=== PATIENT | male | born 2000 | race Caucasian/White ===

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

== ENCOUNTER 2018-08-23 11:49 | Emergency (ER) | payer MEDICAID ==
[2018-08-23] MEDS ORDERED: CEFTRIAXONE INJ 250 MG VIAL IM ONE (12:37)
[2018-08-23] MEDS ORDERED: DOXYCYCLINE HYCLATE 100 MG TABLET PO ONE (12:37)
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
[2018-08-23 12:59] VITALS: BP 109/46
== END 2018-08-23 13:01 | disposition home or self-care (01) ==
LOC: ER 11:49
DX: N48.21 Abscess of corpus cavernosum and penis (principal); R59.0 Localized enlarged lymph nodes; F31.9 Bipolar disorder, unspecified; F17.210 Nicotine dependence, cigarettes, uncomplicated
CPT/HCPCS: 99282; 96372; J3490; J0696

== ENCOUNTER 2018-09-09 09:50 | Emergency (ER) | payer MEDICAID ==
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
--- NOTE | 2018-09-09 11:24 | RADIOLOGY REPORT (SQ) ---
EXAM DESCRIPTION: KNEE LEFT 4 VIEW COMPLETED DATE/TIME: 09/09/2018 10:51 am REASON FOR STUDY: left patella pain s/p injury COMPARISON: None. NUMBER OF VIEWS: Four views. TECHNIQUE: AP, lateral, and both oblique radiographic images acquired of the left knee. LIMITATIONS: None. FINDINGS: MINERALIZATION: Normal. BONES: No acute fracture or dislocation. No worrisome bone lesions. JOINT: No effusion. SOFT TISSUES: No soft tissue swelling. No radio-opaque foreign body. OTHER: No other significant finding. IMPRESSION: NEGATIVE STUDY OF THE LEFT KNEE. NO RADIOGRAPHIC EVIDENCE OF ACUTE INJURY. TECHNICAL DOCUMENTATION: JOB ID: [id number] [employer]- All Rights Reserved Reading location - IP/workstation name: [email or web address]
[2018-09-09 11:51] VITALS: BP 116/63
== END 2018-09-09 11:50 | disposition home or self-care (01) ==
LOC: ER 09:50
DX: M25.562 Pain in left knee (principal); W20.8XXA Other cause of strike by thrown, projected or falling object, initial encounter; F17.200 Nicotine dependence, unspecified, uncomplicated
CPT/HCPCS: 99283

== ENCOUNTER 2018-11-03 09:14 | Emergency (ER) | payer MEDICAID ==
[2018-11-03 09:27] VITALS: BP 135/60
--- NOTE | 2018-11-03 09:44 | ER Document Report ---
HPI - HPI Patient complains to provider of: Left foot numbness Time Seen by Provider: 11/03/18 09:27 Onset: Yesterday Onset/Duration: Persistent Quality of pain: No pain Pain Level: 0 Context: Patient presents complaining of numbness to the dorsal aspect of the left foot in the anterior aspect of his left tapia. Patient denies any trauma or injury. 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 Associated Symptoms: Other - Numbness to the dorsal aspect of left foot and left tapia Exacerbated by: Denies Relieved by: Denies Similar symptoms previously: No Recently seen / treated by doctor: No - ROS ROS below otherwise negative: Yes Systems Reviewed and Negative: Yes All other systems reviewed and negative - CONSTITUTIONAL Constitutional: DENIES: Fever, Chills - NEURO Neurology: DENIES: Weakness - MUSCULOSKELETAL Musculoskeletal: DENIES: Extremity pain, Swelling - DERM Skin Color: Normal Skin Problems: None Past Medical History - General Information source: Patient - Social History Smoking Status: Current Every Day Smoker Smoking Education Provided: Yes Frequency of alcohol use: None Drug Abuse: None 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 IN LAST 30 DAYS: No - HEENT HEENT: Atraumatic, Normocephalic - NECK Neck: Normal Inspection - RESPIRATORY Respiratory: Breath Sounds Normal, No Respiratory Distress - CARDIOVASCULAR Cardiovascular: Regular Rate, Regular Rhythm Pulses: Normal: Dorsalis pedis Notes: Normal capillary refill to left lower extremity - BACK Back: Normal Inspection Notes: No spinal midline tenderness step-off or deformity, no saddle anesthesia - MUSCULOSKELETAL/EXTREMETIES Musculoskeletal/Extremeties: MAEW, FROM, Non-Tender, No Edema Notes: Normal skin color and temperature to the left lower extremity. No edema. Decreased light sensation to touch to anterior aspect of left leg and dorsal aspect of left foot in a superficial peroneal nerve distribution pattern. No foot drop - NEURO Level of Consciousness: Awake, Alert, Appropriate Motor/Sensory: No Motor Deficit - DERM Integumentary: Warm, Dry Course - Re-evaluation Re-evalutation: 11/03/18 Patient presents with symptoms worrisome for superficial peroneal nerve compression syndrome likely attributed to his frequent squatting underneath a trailer while at work for the past 2 days. Patient with good pulses and no evidence of vascular compromise at this time. No foot drop noted. Normal strength and muscle tone to bilateral lower extremities. Good return precautions given. - Vital Signs Vital signs: Temp Pulse Resp BP Pulse Ox 98.1 F 61 18 135/60 H 98 11/03/18 09:24 11/03/18 09:24 11/03/18 09:24 11/03/18 09:24 11/03/18 09:24 Discharge - Discharge Clinical Impression: Nerve compression Condition: Stable Disposition: HOME, SELF-CARE Additional Instructions: Return immediately for any new or worsening symptoms Followup with your primary care provider, call tomorrow to make a followup appointment Be sure to change position frequently whenever you are at work and avoid tight fitting or ill fitting shoes to avoid compression on the nerves of the foot. Return immediately if you have any weakness in the foot, new or worsening symptoms Forms: Smoking Cessation Education, Return to Work Referrals: [facility] [Provider Group] - Follow up as needed
== END 2018-11-03 09:56 | disposition home or self-care (01) ==
LOC: ER 09:14
DX: G58.9 Mononeuropathy, unspecified (principal); R20.0 Anesthesia of skin; F17.200 Nicotine dependence, unspecified, uncomplicated
CPT/HCPCS: 99283

== ENCOUNTER 2019-03-13 21:29 | Emergency (ER) | payer MEDICAID ==
[2019-03-13 22:17] VITALS: BP 115/51
--- NOTE | 2019-03-14 01:30 | RADIOLOGY REPORT (SQ) ---
EXAM DESCRIPTION: XR FOREARM 2 VIEWS COMPLETED DATE/TME: 03/14/2019 00:19 CLINICAL HISTORY: 18 years, Male, injury COMPARISON: None. NUMBER OF VIEWS: 2 TECHNIQUE: 2 view right forearm LIMITATIONS: None. FINDINGS: Negative for fracture or dislocation. Soft tissues are unremarkable IMPRESSION: Negative exam copyright 2011 [employer]- All Rights Reserved
--- NOTE | 2019-03-14 01:31 | RADIOLOGY REPORT (SQ) ---
EXAM DESCRIPTION: XR HUMERUS COMPLETED DATE/TME: 03/14/2019 00:18 CLINICAL HISTORY: 18 years, Male, injury COMPARISON: None. NUMBER OF VIEWS: 2 TECHNIQUE: 2 view right humerus LIMITATIONS: None. FINDINGS: Negative for fracture or dislocation. Soft tissues are unremarkable IMPRESSION: Negative exam copyright 2011 [facility] [employer] [employer]- All Rights Reserved
--- NOTE | 2019-03-14 02:13 | ER Document Report ---
ED General - General Chief Complaint: Arm Injury Stated Complaint: LEFT ARM INJURY Time Seen by Provider: 03/14/19 00:18 Primary Care Provider: SANCHO KAUR FNP-C [Primary Care Provider] - Follow up as needed Mode of Arrival: Ambulatory Information source: Parent TRAVEL OUTSIDE OF THE [place] IN LAST 30 DAYS: No - HPI Patient complains to provider of: Right arm injury Onset: This afternoon Onset/Duration: Sudden Quality of pain: Sharp Severity: Severe Pain Level: 5 Associated symptoms: None Exacerbated by: Denies Similar symptoms previously: No Recently seen / treated by doctor: No Notes: Patient is a 18-year-old a chief complaint of right upper arm pain. Reports he was playing football and fell and injured his right upper extremity. States pain goes from his shoulder to his hands. - Related Data Allergies/Adverse Reactions: Milk Containing Products Adverse Reaction (Verified 11/03/18 09:16) Past Medical History - General Information source: Patient - Social History Smoking Status: Current Every Day Smoker Frequency of alcohol use: None Drug Abuse: Marijuana Family History: Reviewed & Not Pertinent Patient has suicidal ideation: No Patient has homicidal ideation: No Renal/ Medical History: Denies: Hx Peritoneal Dialysis Psychiatric Medical History: Reports: Hx Attention Deficit Hyperactivity Disorder, Hx Bipolar Disorder Past Surgical History: Reports: Hx Nose Surgery - Immunizations Hx Diphtheria, Pertussis, Tetanus Vaccination: Yes Review of Systems - Review of Systems Notes: Constitutional: No fevers. No chills. EENT: No eye redness. No eye pain. No ear pain. No sore throat. Cardiovascular: No chest pain. No palpitations. Respiratory: No cough. No shortness of breath. No respiratory distress. Gastrointestinal: No abdominal pain. No nausea, vomiting, or diarrhea. Genitourinary: Atraumatic. No lesions. No pain. No discharge. Musculoskeletal: Atraumatic. No swelling. No deformities. Positive for right upper extremity pain Skin: No rash or lesions. Lymphatic: No swollen lymph nodes. Neurologic: No headache. No syncope. Psychiatric: No suicidal or homicidal ideation. Physical Exam - Vital signs Vitals: Temp Pulse Resp BP Pulse Ox 97.6 F 87 18 115/51 L 98 03/13/19 22:15 03/13/19 22:15 03/13/19 22:15 03/13/19 22:15 03/13/19 22:15 - Notes Notes: General: Well-developed, well-nourished. In no acute distress. Non-toxic appearing. Cardiac: Well-perfused. Regular rate and rhythm. No murmurs, rubs, or gallops. Pulmonary: No respiratory distress. No cyanosis. Bilateral lung fiels are clear to auscultation. Abdominal: Non-distended. Non-rigid. Bowels sounds are present in all four quadrants. No guarding or rebound. HEENT: Head is atraumatic. Conjunctivae not reddened. No tearing. PERRL. EOMI. Orbits atraumatic. No periorbital swelling or erythema. Oropharynx is without erythema, swelling, or exudates. Neck: Supple. No adenopathy. No meningismus. Dermatologic: Warm with good turgor. No rash. Atraumatic. Chest: Atraumatic. No chest wall tenderness to palpation. Musculoskeletal: Moves all extremities well. No range of motion deficits. no muscular or joint tenderness. No paraspinal muscle tenderness. no midline spinal tenderness or step-off. The right upper extremity is atraumatic in appearance. There is no focal tenderness. There is no swelling or erythema or heat. Full range of motion at all the joints. Neurovascularly intact Genitourinary: Examination deferred Neurologic: No gross neurologic deficits. Psychiatric: Normal mood. Course - Re-evaluation Re-evalutation: 03/14/19 02:12 X-rays are negative. Sling offered for comfort. Patient declined. He is fast asleep and sleeping directly on the arm and is not having any difficulty moving around. - Vital Signs Vital signs: Temp Pulse Resp BP Pulse Ox 97.6 F 87 18 115/51 L 98 03/13/19 22:15 03/13/19 22:15 03/13/19 22:15 03/13/19 22:15 03/13/19 22:15 - Diagnostic Test Radiology reviewed: Reports reviewed - X-rays of the humerus and forearm are reviewed. Negative per radiology Discharge - Discharge Clinical Impression: Arm injury Qualifiers: Encounter type: initial encounter Laterality: right Qualified Code(s): S49.91XA - Unspecified injury of right shoulder and upper arm, initial encounter Condition: Good Disposition: HOME, SELF-CARE Instructions: Muscle Strain ([facility]) Additional Instructions: Tylenol or Motrin for pain. Follow-up with the [facility] if your symptoms persist Referrals: SANCHO KAUR FNP-C [Primary Care Provider] - Follow up as needed [facility] [Provider Group] - Follow up as needed
== END 2019-03-14 02:35 | disposition home or self-care (01) ==
LOC: ER 21:29
DX: S49.91XA Unspecified injury of right shoulder and upper arm, initial encounter (principal); M79.601 Pain in right arm; M25.511 Pain in right shoulder; M79.641 Pain in right hand; W18.30XA Fall on same level, unspecified, initial encounter; Y93.61 Activity, american tackle football; F17.200 Nicotine dependence, unspecified, uncomplicated
CPT/HCPCS: 99283

== ENCOUNTER 2019-05-16 19:09 | Emergency (ER) | payer MEDICAID ==
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
[2019-05-16 21:47] VITALS: BP 123/86
== END 2019-05-16 21:47 | disposition home or self-care (01) ==
LOC: ER 19:09
DX: S09.90XA Unspecified injury of head, initial encounter (principal); S80.212A Abrasion, left knee, initial encounter; S80.211A Abrasion, right knee, initial encounter; Y04.2XXA Assault by strike against or bumped into by another person, initial encounter; F17.200 Nicotine dependence, unspecified, uncomplicated
CPT/HCPCS: 70450; 70486; 72125; 99284

== ENCOUNTER 2019-05-18 17:37 | Emergency (ER) | payer MEDICAID ==
[2019-05-18] MEDS ORDERED: HYDROCODONE/ACETAMINOPHEN 5-325 MG TABLET PO ONE (19:17)
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
[2019-05-18 19:51] VITALS: BP 120/51
== END 2019-05-18 19:53 | disposition home or self-care (01) ==
LOC: ER 17:37
DX: S00.12XA Contusion of left eyelid and periocular area, initial encounter (principal); S80.212A Abrasion, left knee, initial encounter; S80.211A Abrasion, right knee, initial encounter; R68.84 Jaw pain; R51 Headache; Y04.0XXA Assault by unarmed brawl or fight, initial encounter; F12.10 Cannabis abuse, uncomplicated
CPT/HCPCS: 99284

== ENCOUNTER 2019-10-19 16:31 | Emergency (ER) | payer MEDICAID ==
[2019-10-19 16:58] VITALS: BP 117/69
--- NOTE | 2019-10-19 17:17 | ER Document Report ---
HPI - HPI Time Seen by Provider: 10/19/19 17:08 Pain Level: 0 Notes: Patient is a 19-year-old male who presents complaining of small red bump that is a little painful to the proximal shaft of his penis. Patient states that he does shave in this area. He has had this before and needed to put antibiotic ointment cream on it. He has never had any other STD that he is aware. He is able to eat and drink without difficulty. He is urinating normally and having normal bowel movements. No testicular pain or obvious bulging anywhere. He has not noticed any purulent discharge. Denies any headache, fever, neck pain, URI, sore throat, chest pain, palpitations, syncope, cough, shortness of breath, wheeze, dyspnea, abdominal pain, nausea/vomiting/diarrhea, urinary retention, dysuria, hematuria. - ROS Systems Reviewed and Negative: Yes All other systems reviewed and negative Past Medical History - Social History Smoking Status: Current Every Day Smoker Family History: Reviewed & Not Pertinent Patient has suicidal ideation: No Patient has homicidal ideation: No Renal/ Medical History: Denies: Hx Peritoneal Dialysis Psychiatric Medical History: Reports: Hx Attention Deficit Hyperactivity Disorder, Hx Bipolar Disorder Past Surgical History: Reports: Hx Nose Surgery - Immunizations Hx Diphtheria, Pertussis, Tetanus Vaccination: Yes Vertical Provider Document - CONSTITUTIONAL Agree With Documented VS: Yes Notes: PHYSICAL EXAMINATION: GENERAL: Well-appearing, well-nourished and in no acute distress. LUNGS: Breath sounds clear to auscultation bilaterally and equal. No wheezes rales or rhonchi. HEART: Regular rate and rhythm without murmurs, rubs, gallops. ABDOMEN: Soft, nontender, nondistended abdomen. No guarding, no rebound. Normal bowel sounds present. No CVA tenderness bilaterally. : No urethral discharge. No testicular tenderness. No obvious hernia or lymphadenopathy. Nontender palpation of the testicles. There is a mild erythema and swelling at the site of hair follicle approximately 0.5 cm that has tenderness associated and mild induration without any fluctuance. There is no ulceration or fasciculations. Musculoskeletal: FROM to passive/active. Strength 5+/5. Extremities: No cyanosis, clubbing, or edema b/l. Peripheral pulses 2+. Capillary refill less than 3 seconds. NEUROLOGICAL: Normal speech, normal gait. PSYCH: Normal mood, normal affect. SKIN: See above - INFECTION CONTROL TRAVEL OUTSIDE OF THE [place] IN LAST 30 DAYS: No Course - Re-evaluation Re-evalutation: 10/19/19 17:17 Patient is an afebrile, well-hydrated, 19-year-old male who presents with a mild cellulitis to the base of his penis most likely secondary to him shaving in that area of an infected hair follicle. There is no obvious fluctuance warranting incision and drainage at this time. Vitals are acceptable without significant tachycardia, tachypnea, or hypoxia. PE is otherwise unremarkable. Patient is nontoxic-appearing and is tolerating p.o. without difficulty. Low suspicion for any necrotizing fasciitis, SJS, SSS, drug reaction, sepsis, meningitis, syphilis, Lyme disease, [place] spotted fever, or other systemic emergent condition at this time. Patient aware that condition can change from initial presentation and he needs to monitor symptoms closely and seek medical attention with any acute changes. Rx for keflex/bactrim. Recheck with your PCM in 2 to 3 days. Consider consult with dermatology. Return to the ED with any other worsening/concerning symptoms as reviewed. Patient is in agreement. - Vital Signs Vital signs: Temp Pulse Resp BP Pulse Ox 97.9 F 55 L 12 117/69 100 10/19/19 16:57 10/19/19 16:57 10/19/19 16:57 10/19/19 16:57 10/19/19 16:57 Discharge - Discharge Clinical Impression: Cellulitis Qualifiers: Site of cellulitis: other site Qualified Code(s): L03.818 - Cellulitis of other sites Condition: Stable Disposition: HOME, SELF-CARE Additional Instructions: Keep the skin clean Wash with soap and water Tylenol/ibuprofen if needed Avoid shaving for 2 weeks Triple antibiotic ointment daily Take medication as directed Monitor for any worsening symptoms Recheck with your PCM in 2-3 days Consider consult with Dermatology for ongoing/worsening symptoms Return to the ED with any worsening symptoms and/or development of fever, headache, chest pain, palpitations, syncope, shortness of breath, trouble breathing, abdominal pain, n/v/d, abscess, purulent discharge, red streaks, worsening swelling, or other worsening symptoms that are concerning to you. Prescriptions: Sulfamethoxazole/Trimethoprim [Bactrim Ds Tablet] 1 each PO BID #20 tablet Cephalexin Monohydrate [Keflex 500 mg Capsule] 500 mg PO TID #30 capsule Forms: Smoking Cessation Education Referrals: NEISHA JONES DO [ACTIVE STAFF] - Follow up as needed
== END 2019-10-19 17:27 | disposition home or self-care (01) ==
LOC: ER 16:31
DX: N48.22 Cellulitis of corpus cavernosum and penis (principal); F17.200 Nicotine dependence, unspecified, uncomplicated
CPT/HCPCS: 99283

== ENCOUNTER 2019-11-25 15:35 | Emergency (ER) | payer MEDICAID ==
[2019-11-25] MEDS ORDERED: ONDANSETRON 4 MG TAB.RAPDIS PO ONE (16:24)
[2019-11-25] MEDS ORDERED: NORMAL SALINE 1000 ML 1,000 ML IV PRN (16:24)
--- NOTE | 2019-11-25 16:26 | ER Document Report ---
ED Medical Screen (RME) - General Chief Complaint: Nausea/Vomiting/Diarrhea Stated Complaint: NAUSEA,VOMITING,DIARRHEA Time Seen by Provider: 11/25/19 16:22 TRAVEL OUTSIDE OF THE [place] IN LAST 30 DAYS: No - HPI Notes: 11/25/19 16:25 Patient is a 19-year-old male no significant past medical history presents complaint nausea, vomiting, diarrhea, body aches, nasal congestion/discharge, occasional cough over the past 4 days. Patient states that he has not been able to keep any fluids down. I have treated and performed a rapid initial assessment of this patient. A comprehensive ED assessment and evaluation of the patient, analysis of test results and completion of medical decision making process will be conducted by additional ED providers. PHYSICAL EXAMINATION: GENERAL: Well-appearing, well-nourished and in no acute distress. A&Ox4. Answers questions appropriately. Abdomen: No focal tenderness noted. Abdomen is soft. Limited exam otherwise in triage. Lungs: CTAB - Related Data Allergies/Adverse Reactions: Milk Containing Products Adverse Reaction (Verified 05/18/19 17:39) Past Medical History Renal/ Medical History: Denies: Hx Peritoneal Dialysis Psychiatric Medical History: Reports: Hx Attention Deficit Hyperactivity Disorder, Hx Bipolar Disorder Past Surgical History: Reports: Hx Nose Surgery - Immunizations Hx Diphtheria, Pertussis, Tetanus Vaccination: Yes Physical Exam - Vital signs Vitals: Temp Pulse Resp BP Pulse Ox 98.5 F 89 15 161/72 H 100 11/25/19 15:55 11/25/19 15:55 11/25/19 15:55 11/25/19 15:55 11/25/19 15:55 Course - Vital Signs Vital signs: Temp Pulse Resp BP Pulse Ox 98.5 F 89 15 161/72 H 100 11/25/19 15:55 11/25/19 15:55 11/25/19 15:55 11/25/19 15:55 11/25/19 15:55
[2019-11-25 17:30] LABS: ABSOLUTE LYMPHOCYTES (AUTO) 1.7 10^3/uL (0.5-4.7); ABSOLUTE MONOCYTES (AUTO) 0.7 10^3/uL (0.1-1.4); ABSOLUTE NEUT (AUTO) 4.2 10^3/uL (1.7-8.2); BASOPHILS % (AUTO) 0.5 % (0-2); EOSINOPHILS % (AUTO) 0.3 % (0-6); HEMATOCRIT 44.3 % (37.9-51.0); HEMOGLOBIN 15.4 g/dL (13.5-17.0); LYMPHOCYTES % (AUTO) 25.9 % (13-45); MEAN CORPUSCULAR HEMOGLOBIN 30.3 pg (27.0-33.4); MEAN CORPUSCULAR HGB CONC 34.8 g/dL (32.0-36.0); MEAN CORPUSCULAR VOLUME 87 fl (80-97); MONOCYTES % (AUTO) 10.4 % (3-13); PLATELET COUNT 172 10^3/uL (150-450); RED CELL DISTRIBUTION WIDTH 13.2 % (11.5-14.0); SEGMENTED NEUTROPHILS % (AUTO) 62.9 % (42-78); TOTAL CELLS COUNTED % (AUTO) 100 %; WHITE BLOOD COUNT 6.7 10^3/uL (4.0-10.5)
[2019-11-25 17:52] LABS: ALBUMIN 4.9 g/dL (3.5-5.0); ALKALINE PHOSPHATASE 61 U/L (38-126); ANION GAP 15 (5-19); ASPARTATE AMINO TRANSFERASE 30 U/L (17-59); BILIRUBIN,DIRECT 0.2 mg/dL (0.0-0.4); BILIRUBIN,TOTAL 0.6 mg/dL (0.2-1.3); BLOOD UREA NITROGEN 10 mg/dL (7-20); CALCIUM 9.5 mg/dL (8.4-10.2); CARBON DIOXIDE 26 mmol/L (22-30); CHLORIDE 101 mmol/L (98-107); GLUCOSE 86 mg/dL (75-110); TOTAL PROTEIN 8.3 g/dL (6.3-8.2)
[2019-11-25 17:57] LABS: APPEARANCE,URINE SLIGHTLY-CLOUDY; BILIRUBIN,URINE NEGATIVE (NEGATIVE); COLOR,URINE YELLOW; GLUCOSE, URINE NEGATIVE (NEGATIVE); KETONES,URINE 80 mg/dL (NEGATIVE); PROTEIN,URINE 30 mg/dL (NEGATIVE); URINE SPECIFIC GRAVITY 1.025
--- NOTE | 2019-11-25 18:25 | ER Document Report ---
ED General - General Chief Complaint: Nausea/Vomiting/Diarrhea Stated Complaint: NAUSEA,VOMITING,DIARRHEA Time Seen by Provider: 11/25/19 16:22 Primary Care Provider: SANCHO KAUR FNP-C [Primary Care Provider] - Follow up in 3-5 days Notes: 19-year-old male presents with nausea/vomiting/diarrhea for 3 days. Patient states he is also had some cough and congestion. Patient also reports generalized weakness and generalized body aches. Patient states his symptoms have improved today. Last emesis was at 830 to 9:00 this morning. Patient states his diarrhea also has improved. Patient denies any blood in emesis or stools. Patient states he has also had subjective fever/chills. Patient states he was able to keep down some soup this afternoon and has been drinking Gatorade while in ER today. TRAVEL OUTSIDE OF THE [place] IN LAST 30 DAYS: No - Related Data Allergies/Adverse Reactions: Milk Containing Products Adverse Reaction (Verified 05/18/19 17:39) Past Medical History - Social History Smoking Status: Current Every Day Smoker Frequency of alcohol use: None Drug Abuse: None Family History: Reviewed & Not Pertinent Patient has suicidal ideation: No Patient has homicidal ideation: No Renal/ Medical History: Denies: Hx Peritoneal Dialysis Psychiatric Medical History: Reports: Hx Attention Deficit Hyperactivity Disorder, Hx Bipolar Disorder Past Surgical History: Reports: Hx Nose Surgery - Immunizations Hx Diphtheria, Pertussis, Tetanus Vaccination: Yes Review of Systems - Review of Systems Notes: Constitutional: Negative for fever. HENT: Positive for congestion. Negative for sore throat. Eyes: Negative for visual changes. Cardiovascular: Negative for chest pain. Respiratory: Positive for cough. Negative for shortness of breath. Gastrointestinal: Positive for nausea, vomiting, diarrhea. Negative for abdominal pain. Genitourinary: Negative for dysuria. Musculoskeletal: Negative for back pain. Skin: Negative for rash. Neurological: Negative for headaches, weakness or numbness. 10 point ROS negative except as marked above and in HPI. Physical Exam - Vital signs Vitals: Temp Pulse Resp BP Pulse Ox 98.5 F 89 15 161/72 H 100 11/25/19 15:55 11/25/19 15:55 11/25/19 15:55 11/25/19 15:55 11/25/19 15:55 - Notes Notes: GENERAL: Well-appearing, well-nourished and in no acute distress. HEAD: Atraumatic, normocephalic. EYES: Extraocular movements intact, sclera anicteric, conjunctiva are normal. NECK: Normal range of motion, supple without lymphadenopathy or JVD. LUNGS: Breath sounds clear to auscultation bilaterally and equal. No wheezes rales or rhonchi. HEART: Regular rate and rhythm without murmurs, rubs or gallops. ABDOMEN: Soft, nontender. No guarding, no rebound. No masses appreciated. EXTREMITIES: Normal range of motion, no pitting or edema. No clubbing or cyanosis. NEUROLOGICAL: Cranial nerves II through XII grossly intact. Normal speech, normal gait. PSYCH: Normal mood, normal affect. SKIN: Warm, Dry, normal turgor, no rashes or lesions noted. Course - Re-evaluation Re-evalutation: 11/25/19 patient presents with symptoms consistent with influenza-like illness. Patient is nontoxic, well-appearing. Lungs clear to auscultation bilaterally regular rate and rhythm. Abdomen soft nontender. PE is otherwise unremarkable. Patient is p.o. tolerant in ER. Patient is afebrile. Lab work is reassuring. Patient states his nausea improved with Zofran. Prescription for Zofran given with close follow-up with PCP. Discussed all results with patient. Return precautions given. Patient voices understanding and agrees with plan of care. - Vital Signs Vital signs: Temp Pulse Resp BP Pulse Ox 98.5 F 89 15 161/72 H 100 11/25/19 15:55 11/25/19 15:55 11/25/19 15:55 11/25/19 15:55 11/25/19 15:55 - Laboratory Result Diagrams: 11/25/19 17:15 11/25/19 17:15 Laboratory results interpreted by me: 11/25/19 11/25/19 17:10 17:15 Total Protein 8.3 H Urine Protein 30 H Urine Ketones 80 H Urine Urobilinogen 2.0 H Discharge - Discharge Clinical Impression: Nausea vomiting and diarrhea, Influenza-like illness Condition: Stable Disposition: HOME, SELF-CARE Instructions: Antinausea Medication ([facility]), Viral Syndrome ([facility]) Additional Instructions: Please take medications as prescribed. Please follow-up with your primary care doctor in 3 to 5 days. Return to ER for any worsening symptoms, including fever, abdominal pain, vomiting not controlled by medication worsening diarrhea, blood in vomit or stool, chest pain, shortness of breath, coughing up blood, or any other symptoms that are concerning to you. Prescriptions: Ondansetron [Zofran Odt 4 mg Tablet] 1 - 2 tab PO Q4H PRN #15 tab.rapdis PRN Reason: For Nausea/Vomiting Forms: Return to Work Referrals: SANCHO KAUR MARKET RESEARCH INTERVIEWER-C [Primary Care Provider] - Follow up in 3-5 days
[2019-11-25 18:42] VITALS: BP 124/66
== END 2019-11-25 18:37 | disposition home or self-care (01) ==
LOC: ER 15:35
DX: J11.1 Influenza due to unidentified influenza virus with other respiratory manifestations (principal); R11.2 Nausea with vomiting, unspecified; R19.7 Diarrhea, unspecified; R05 Cough; R09.81 Nasal congestion; R53.1 Weakness; M79.10 Myalgia, unspecified site; F17.200 Nicotine dependence, unspecified, uncomplicated
CPT/HCPCS: 99283; 36415; 83690; 85025; 80053; 81001; S0119

== ENCOUNTER 2020-01-25 09:56 | Emergency (ER) | payer MEDICAID ==
[2020-01-25] MEDS ORDERED: TETRACAINE HCL 0.5% OPH SOLN 4 ML OU ONE ×2 (10:40→12:39)
--- NOTE | 2020-01-25 10:43 | ER Document Report ---
ED Medical Screen (RME) - General Chief Complaint: Chemical Exposure Stated Complaint: CHEMICAL EXPOSURE/DEPRESSION/DIFFICULTY BREATHING Time Seen by Provider: 01/25/20 10:38 Primary Care Provider: SANCHO KAUR FNP-C [Primary Care Provider] - Follow up as needed TRAVEL OUTSIDE OF THE [place] IN LAST 30 DAYS: No - HPI Notes: 01/25/20 10:41 Patient is a 19-year-old male with a history of depression who presents complaining of feeling depressed since March with a in the family. Patient has not been on medicines. Patient is accompanied by family member. He has not been eating as much and has been sleeping often. Patient states that he has no motivation to do anything. He has no SI or HI. No visual or auditory hallucinations. He is requesting to be back on medicines. 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 Patient states that he had a little irritation at that point, but otherwise has not had any changes in vision or redness. He does not wear contact lenses. No fever. I have treated and performed a rapid initial assessment of this patient. A comprehensive ED assessment and evaluation of the patient, analysis of test results and completion of medical decision making process will be conducted by additional ED providers. PHYSICAL EXAMINATION: GENERAL: Well-appearing, well-nourished and in no acute distress. A&Ox4. Answers questions appropriately. Eyes: PERRLA, EOMI bilaterally. Conjunctivo-without injection. No discharge. Psych: normal mood/affect. - Related Data Allergies/Adverse Reactions: Milk Containing Products Adverse Reaction (Verified 05/18/19 17:39) Past Medical History Renal/ Medical History: Denies: Hx Peritoneal Dialysis Psychiatric Medical History: Reports: Hx Attention Deficit Hyperactivity Disorder, Hx Bipolar Disorder Past Surgical History: Reports: Hx Nose Surgery - Immunizations Hx Diphtheria, Pertussis, Tetanus Vaccination: Yes Physical Exam - Vital signs Vitals: Temp Pulse Resp BP Pulse Ox 97.4 F 64 20 131/61 H 100 01/25/20 10:05 01/25/20 10:05 01/25/20 10:05 01/25/20 10:05 01/25/20 10:05 Course - Vital Signs Vital signs: Temp Pulse Resp BP Pulse Ox 97.4 F 64 20 131/61 H 100 01/25/20 10:05 01/25/20 10:05 01/25/20 10:05 01/25/20 10:05 01/25/20 10:05 Doctor's Discharge - Discharge Referrals: SANCHO KAUR, BOTANY TECHNICIAN-C [Primary Care Provider] - Follow up as needed
[2020-01-25 11:06] LABS: ABSOLUTE BASOPHILS # (AUTO) 0.1 10^3/uL (0.0-0.2); ABSOLUTE EOSINOPHILS # (AUTO) 0.2 10^3/uL (0.0-0.6); ABSOLUTE LYMPHOCYTES (AUTO) 2.6 10^3/uL (0.5-4.7); ABSOLUTE MONOCYTES (AUTO) 0.5 10^3/uL (0.1-1.4); ABSOLUTE NEUT (AUTO) 3.7 10^3/uL (1.7-8.2); BASOPHILS % (AUTO) 0.7 % (0-2); EOSINOPHILS % (AUTO) 2.8 % (0-6); HEMATOCRIT 45.8 % (37.9-51.0); HEMOGLOBIN 15.5 g/dL (13.5-17.0); LYMPHOCYTES % (AUTO) 36.3 % (13-45); MEAN CORPUSCULAR HEMOGLOBIN 29.7 pg (27.0-33.4); MEAN CORPUSCULAR HGB CONC 33.8 g/dL (32.0-36.0); MEAN CORPUSCULAR VOLUME 88 fl (80-97); MONOCYTES % (AUTO) 7.5 % (3-13); PLATELET COUNT 224 10^3/uL (150-450); RED BLOOD COUNT 5.21 10^6/uL (4.35-5.55); RED CELL DISTRIBUTION WIDTH 13.4 % (11.5-14.0); SEGMENTED NEUTROPHILS % (AUTO) 52.7 % (42-78); TOTAL CELLS COUNTED % (AUTO) 100 %; WHITE BLOOD COUNT 7.1 10^3/uL (4.0-10.5)
[2020-01-25 11:25] LABS: ALBUMIN 4.9 g/dL (3.5-5.0); ALKALINE PHOSPHATASE 58 U/L (38-126); ANION GAP 10 (5-19); ASPARTATE AMINO TRANSFERASE 28 U/L (17-59); BILIRUBIN,DIRECT 0.2 mg/dL (0.0-0.4); BILIRUBIN,TOTAL 0.7 mg/dL (0.2-1.3); BLOOD UREA NITROGEN 11 mg/dL (7-20); CALCIUM 9.6 mg/dL (8.4-10.2); CARBON DIOXIDE 29 mmol/L (22-30); CHLORIDE 103 mmol/L (98-107); GLUCOSE 91 mg/dL (75-110); POTASSIUM 4.8 mmol/L (3.6-5.0); TOTAL PROTEIN 8.2 g/dL (6.3-8.2)
[2020-01-25 11:26] LABS: ACETAMINOPHEN < 10 ug/mL (10-30); ALCOHOL < 10 mg/dL (NONE DETECTED); SALICYLATE < 1.0 mg/dL (2.0-20.0)
[2020-01-25 11:51] LABS: APPEARANCE,URINE CLEAR; BILIRUBIN,URINE NEGATIVE (NEGATIVE); COLOR,URINE YELLOW; GLUCOSE, URINE NEGATIVE (NEGATIVE); KETONES,URINE NEGATIVE (NEGATIVE); LEUKOCYTE ESTERASE,URINE NEGATIVE (NEGATIVE); NITRITE,URINE NEGATIVE (NEGATIVE); PROTEIN,URINE NEGATIVE (NEGATIVE); URINE SPECIFIC GRAVITY 1.017; UROBILINOGEN,URINE NEGATIVE mg/dL (<2.0)
[2020-01-25 12:21] LABS: URINE AMPHETAMINES SCREEN NEGATIVE; URINE BARBITURATES SCREEN NEGATIVE; URINE BENZODIAZEPINES SCREEN NEGATIVE; URINE COCAINE SCREEN NEGATIVE; URINE METHADONE SCREEN NEGATIVE; URINE PHENCYCLIDINE SCREEN NEGATIVE
[2020-01-25 12:31] LABS: URINE MARIJUANA (THC) SCREEN UNCONFIRMED POSITIVE
[2020-01-25] MEDS ORDERED: OLANZAPINE 2.5 MG TABLET PO ONE (12:39)
--- NOTE | 2020-01-25 12:39 | ER Document Report ---
ED General <MORENOCANELO - Last Filed: 01/25/20 13:00> - General Mode of Arrival: Ambulatory Information source: Patient TRAVEL OUTSIDE OF THE [place] IN LAST 30 DAYS: No - HPI Onset: Other Quality of pain: No pain Associated symptoms: None Exacerbated by: Denies Relieved by: Denies Similar symptoms previously: No Recently seen / treated by doctor: No <DANICA ACEVEDO - Last Filed: 01/25/20 14:04> - General Chief Complaint: Psych Problem Stated Complaint: CHEMICAL EXPOSURE/DEPRESSION/DIFFICULTY BREATHING Time Seen by Provider: 01/25/20 10:38 Primary Care Provider: Razia EL [Provider Group] - 01/31/20 2:00 pm SANCHO KAUR FNP-C [Primary Care Provider] - Follow up as needed Notes: 19-year-old male presents emergency department with his mom for complaints of depression. Denies suicidal ideations or homicidal ideations. Reports no history of suicide attempt. Reports he had a in the family this past year and he has not been able to shake the depression. 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 He denies irritation at this time. Denies vision problems or concerns. Denies fever vomiting diarrhea (DANICA ACEVEDO) - Related Data Allergies/Adverse Reactions: Milk Containing Products Adverse Reaction (Verified 05/18/19 17:39) Past Medical History - General Information source: Patient - Social History Smoking Status: Current Every Day Smoker Cigarette use (# per day): Yes Frequency of alcohol use: None Drug Abuse: None Lives with: Family Family History: Reviewed & Not Pertinent Patient has suicidal ideation: No Patient has homicidal ideation: No Renal/ Medical History: Denies: Hx Peritoneal Dialysis Psychiatric Medical History: Reports: Hx Attention Deficit Hyperactivity Disorder, Hx Bipolar Disorder, Hx Depression Past Surgical History: Reports: Hx Nose Surgery - Immunizations Hx Diphtheria, Pertussis, Tetanus Vaccination: Yes <DANICA ACEVEDO - Last Filed: 01/25/20 14:04> Review of Systems <DANICA ACEVEDO - Last Filed: 01/25/20 14:04> - Review of Systems Notes: Review HPI for review of systems., All other systems negative (DANICA ACEVEDO) Physical Exam - HEENT Visual acuity- Right eye: 20/50 Visual acuity- Left eye: 20/50 Visual acuity- Both eyes: 20/50 Corrective lenses worn: No - pt states he normally wears glasses, doesnt have them with him - Respiratory Respiratory status: No respiratory distress Chest status: Nontender Breath sounds: Normal Chest palpation: Normal - Cardiovascular Rhythm: Regular - Abdominal Inspection: Normal Distension: No distension Tenderness: Nontender - Back Back: Normal - Extremities General upper extremity: Normal ROM General lower extremity: Normal ROM - Neurological Neuro grossly intact: Yes Cognition: Normal Orientation: AAOx4 Pratima Coma Scale Eye Opening: Spontaneous Pratima Coma Scale Verbal: Oriented [place] Coma Scale Motor: Obeys Commands Pratima Coma Scale Total: 15 Speech: Normal Cranial nerves: Normal - Psychological Associated symptoms: Normal affect, Normal mood - Skin Skin Temperature: Warm Skin Moisture: Dry Skin Color: Normal <DANICA ACEVEDO - Last Filed: 01/25/20 14:04> - Vital signs Vitals: Temp Pulse Resp BP Pulse Ox 97.4 F 64 20 131/61 H 100 01/25/20 10:05 01/25/20 10:05 01/25/20 10:05 01/25/20 10:05 01/25/20 10:05 Course - Laboratory Result Diagrams: 01/25/20 10:50 01/25/20 10:50 <CANELO MORENO - Last Filed: 01/25/20 13:00> - Laboratory Result Diagrams: 01/25/20 10:50 01/25/20 10:50 - EKG Interpretation by Ks EKG shows normal: Sinus rhythm Rate: Bradycardia Rhythm: NSR <DANICA ACEVEDO - Last Filed: 01/25/20 14:04> - Re-evaluation Re-evalutation: 01/25/20 14:01 19-year-old male with history of depression and anger issues presents emergency department with complaints of depression since last March when he had a in the family. He has not been taking any medications. Presents today with depression reports he has not been able to shake the feeling. Patient is accompanied by his mother. He denies suicidal ideations denies previous history of suicide attempts. Robin from [facility] is been in and assessed patient. Have arranged for him to follow-up with outpatient community resources. Patient and mother agrees to plan of care. Patient has been prescribed Zyprexa 2 weeks prescription. Mother and patient were instructed to return to the emergency department for any concerns worsening symptoms thoughts of suicide. They both verbalized understanding. Labs unremarkable Laboratory 01/25/20 01/25/20 01/25/20 10:50 10:50 11:26 WBC 7.1 RBC 5.21 Hgb 15.5 Hct 45.8 MCV 88 MCH 29.7 MCHC 33.8 RDW 13.4 Plt Count 224 Lymph % (Auto) 36.3 Nobles % (Auto) 7.5 Eos % (Auto) 2.8 Baso % (Auto) 0.7 Absolute Neuts (auto) 3.7 Absolute Lymphs (auto) 2.6 Absolute Monos (auto) 0.5 Absolute Eos (auto) 0.2 Absolute Basos (auto) 0.1 Seg Neutrophils % 52.7 Sodium 141.9 Potassium 4.8 Chloride 103 Carbon Dioxide 29 Anion Gap 10 BUN 11 Creatinine 0.69 Est GFR ( Amer) > 60 Est GFR (MDRD) Non-Af > 60 Glucose 91 Calcium 9.6 Total Bilirubin 0.7 Direct Bilirubin 0.2 Neonat Total Bilirubin Not Reportable Neonat Direct Bilirubin Not Reportable Neonat Indirect Bili Not Reportable AST 28 ALT 13 Alkaline Phosphatase 58 Total Protein 8.2 Albumin 4.9 Urine Color YELLOW Urine Appearance CLEAR Urine pH 7.0 Ur Specific [place] 1.017 Urine Protein NEGATIVE Urine Glucose (UA) NEGATIVE Urine Ketones NEGATIVE Urine Blood NEGATIVE Urine Nitrite NEGATIVE Urine Bilirubin NEGATIVE Urine Urobilinogen NEGATIVE Ur Leukocyte Esterase NEGATIVE Urine WBC (Auto) 1 Urine Mucus (Auto) RARE Urine Ascorbic Acid NEGATIVE Salicylates < 1.0 L Urine Opiates Screen Urine Methadone Screen Acetaminophen < 10 L Ur Barbiturates Screen Ur Phencyclidine Scrn Ur Amphetamines Screen U Benzodiazepines Scrn Urine Cocaine Screen U Marijuana (THC) Screen Serum Alcohol < 10 01/25/20 11:26 WBC RBC Hgb Hct MCV MCH MCHC RDW Plt Count Lymph % (Auto) Nobles % (Auto) Eos % (Auto) Baso % (Auto) Absolute Neuts (auto) Absolute Lymphs (auto) Absolute Monos (auto) Absolute Eos (auto) Absolute Basos (auto) Seg Neutrophils % Sodium Potassium Chloride Carbon Dioxide Anion Gap BUN Creatinine Est GFR ( Amer) Est GFR (MDRD) Non-Af Glucose Calcium Total Bilirubin Direct Bilirubin Neonat Total Bilirubin Neonat Direct Bilirubin Neonat Indirect Bili AST ALT Alkaline Phosphatase Total Protein Albumin Urine Color Urine Appearance Urine pH Ur Specific [place] Urine Protein Urine Glucose (UA) Urine Ketones Urine Blood Urine Nitrite Urine Bilirubin Urine Urobilinogen Ur Leukocyte Esterase Urine WBC (Auto) Urine Mucus (Auto) Urine Ascorbic Acid Salicylates Urine Opiates Screen NEGATIVE Urine Methadone Screen NEGATIVE Acetaminophen Ur Barbiturates Screen NEGATIVE Ur Phencyclidine Scrn NEGATIVE Ur Amphetamines Screen NEGATIVE U Benzodiazepines Scrn NEGATIVE Urine Cocaine Screen NEGATIVE U Marijuana (THC) Screen UNCONFIRMED POSITIVE Serum Alcohol 01/25/20 14:02 (DANICA ACEVEDO) - Vital Signs Vital signs: Temp Pulse Resp BP Pulse Ox 98.1 F 49 L 16 124/56 L 100 01/25/20 13:23 01/25/20 13:23 01/25/20 13:23 01/25/20 13:23 01/25/20 13:23 - Laboratory Laboratory results interpreted by me: 01/25/20 10:50 Salicylates < 1.0 L Acetaminophen < 10 L - EKG Interpretation by Me Additional EKG results interpreted by me: 01/25/20 14:[address] elevation no T wave inversion (DANICA ACEVEDO) Discharge <CANELO MOERNO - Last Filed: 01/25/20 13:00> <DANICA ACEVEDO - Last Filed: 01/25/20 14:04> - Discharge Clinical Impression: Depression Qualifiers: Depression Type: unspecified Qualified Code(s): F32.9 - Major depressive disorder, single episode, unspecified Condition: Stable Disposition: HOME, SELF-CARE Additional Instructions: You have been evaluated by both medical and behavioral health teams for depression and have been deemed appropriate for discharge. While you were in the Emergency Department you received the following services: medical, psychiatric/psychological, pharmaceutical, dietary, nursing, safety physician and security, environmental in addition to psychoeducation and resources/referrals. You have been started on Zyprexa 2.5 mg every morning and 5 mg nightly. An appointment for intake, comprehensive clinical assessment, at [facility] for 01/31/2020 at 1400. Please arrive 15 minutes prior to your appointment to ensure any paperwork is completed if needed. Also please remember to bring your photo ID and insurance card. Bipolar Disorder Bipolar disorder is also called manic-depressive disorder. Depression alternates with brain hyperactivity called israel. Each phase lasts from several days to a few weeks. We don't know exactly what causes bipolar disorder, but it's treatable. During the "manic phase," you may feel elated and energetic. You may have racing thoughts, rapid speech, increased activity, and grandiose ideas. During this time, you may not realize how poor your judgement is. Inappropriate spending, drug abuse, excessive alcohol use, marriage problems, and irresponsible sexual behavior are common during the manic phase. During the "depressive phase," you might feel depressed, guilty, worthless, fatigued, and unable to concentrate. You might have thoughts of suicide. Good treatments are available for bipolar disorder. [place] is a classic drug for bipolar disorder, and is still often useful. If the manic phase is very mild, an antidepressant alone can be prescribed. If the manic phase is very severe, an antipsychotic medicine (such as Haldol) may be needed. The treatment must be matched to your symptoms, so it's important to work closely with your psychiatric care provider. Contact your physician, the hospital emergency center, crisis line, or your counsellor if you are losing control or having self-destructive thoughts. AT ANY TIME, IF YOUR SYMPTOMS CHANGE SIGNIFICANTLY OR WORSEN OR YOU DEVELOP NEW SYMPTOMS, RETURN TO THE EMERGENCY DEPARTMENT IMMEDIATELY FOR RE-EVALUATION. Prescriptions: Olanzapine [Zyprexa 5 mg Tablet] 5 mg PO QHS #14 tablet Olanzapine [Zyprexa 2.5 Mg Tablet] 2.5 mg PO QAM #14 tablet Referrals: SANCHO KAUR FNP-C [Primary Care Provider] - Follow up as needed Razia EL [Provider Group] - 01/31/20 2:00 pm
--- NOTE | 2020-01-25 13:00 | PSYCHOLOGICAL NOTE ---
Psych Note - Psych Note Date seen by psych provider: 01/25/20 Time seen by psych provider: 11:55 Psych Note: Reason For Consult:Depression Consent Permissions:patient's mother at bedside per patient's request Patient reports long history of anger issues that has effected daily living. He was kicked out of high school in 9th grade and never completed, and spent 8 months in in a fpc when he was 14 years old. He reports continued difficulties with anger; however, has developed depression where he has a lack of motivation. He report he is unable to hold a job, does not care if he has friends, does not leave his bed at times, and has lacked an appetite. He denies wanting to but reports he has no energy to improve his current situation. He reports he came in because he is tired of feeling this way and wants help. Patient's mother reports the patient has been on many medications over the years that work for a few months then "it is like he took a sugar pill...It just stops working." She confirms the patient asked to come in and she has no concerns with the patient coming home with her. Patient is alert and orientated to person, place, time and circumstance. Mood is euthymic with congruent affect. Patient denies suicidal and homicidal ideation. Delusions are absent and behaviors congruent with an intact reality based presentation I organized and linear thought process. Eye contact is well- maintained. Conversational speech is within normal rate, tone and prosody. Intellectual abilities appear to be within the average range. Attention and concentration are good. Insight, judgment, impulse control are fair. Medication recommendations per [facility]'s contracted psychiatrist Dr. Kane NUNEZ are as follows Zyprexa 2.5mg every morning and 5mg every evening Impression\\plan:Patient is cleared from acute psychiatric services. Patient reports being off medications for over a year with increased symptoms of his mood disorder (ie anger and depression). He asked to come to [facility] because if was tired of feeling this way and wanted help. He confirms wanting assistance for both medication management and therapeutic services. Medication recommendations have been provided intake appointment with Matthew has been scheduled for 01/31/2020 at 1400. Patient's mother and patient feel very comfortable with this plan of care and have no further concerns at this time. Dr. Curiel was consulted to care management of this patient; attending physicians in agreement with recommendations and disposition.
[2020-01-25 13:47] VITALS: BP 124/56
--- NOTE | 2020-01-25 19:41 | EKG REPORT ---
SEVERITY:- OTHERWISE NORMAL ECG - SINUS BRADYCARDIA : Confirmed by: Patricia Garcia MD 25-Jan-2020 19:39:12
== END 2020-01-25 13:30 | disposition home or self-care (01) ==
LOC: ER 09:56
DX: F32.9 Major depressive disorder, single episode, unspecified (principal); Z63.4 Disappearance and death of family member; Z77.098 Contact with and (suspected) exposure to other hazardous, chiefly nonmedicinal, chemicals; R00.1 Bradycardia, unspecified; F17.210 Nicotine dependence, cigarettes, uncomplicated
CPT/HCPCS: 93005; 99285; 36415; 80307 ×4; 85025; 80053; 81001; 93010; J3490 ×2

== ENCOUNTER 2020-09-09 09:09 | Emergency (ER) | payer MEDICAID, OTHER ==
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
[2020-09-09 11:21] LABS: ABSOLUTE BASOPHILS # (AUTO) 0.1 10^3/uL (0.0-0.2); ABSOLUTE EOSINOPHILS # (AUTO) 0.2 10^3/uL (0.0-0.6); ABSOLUTE LYMPHOCYTES (AUTO) 1.9 10^3/uL (0.5-4.7); ABSOLUTE MONOCYTES (AUTO) 0.5 10^3/uL (0.1-1.4); ABSOLUTE NEUT (AUTO) 4.2 10^3/uL (1.7-8.2); EOSINOPHILS % (AUTO) 2.9 % (0-6); HEMATOCRIT 41.5 % (37.9-51.0); HEMOGLOBIN 14.5 g/dL (13.5-17.0); LYMPHOCYTES % (AUTO) 26.8 % (13-45); MEAN CORPUSCULAR HEMOGLOBIN 30.4 pg (27.0-33.4); MEAN CORPUSCULAR HGB CONC 34.8 g/dL (32.0-36.0); MEAN CORPUSCULAR VOLUME 87 fl (80-97); MONOCYTES % (AUTO) 7.8 % (3-13); PLATELET COUNT 208 10^3/uL (150-450); RED BLOOD COUNT 4.75 10^6/uL (4.35-5.55); RED CELL DISTRIBUTION WIDTH 12.9 % (11.5-14.0); SEGMENTED NEUTROPHILS % (AUTO) 61.5 % (42-78); TOTAL CELLS COUNTED % (AUTO) 100 %; WHITE BLOOD COUNT 6.9 10^3/uL (4.0-10.5)
[2020-09-09 11:47] LABS: ALBUMIN 4.2 g/dL (3.5-5.0); ALKALINE PHOSPHATASE 45 U/L (38-126); ANION GAP 9 (5-19); ASPARTATE AMINO TRANSFERASE 23 U/L (17-59); BILIRUBIN,DIRECT 0.2 mg/dL (0.0-0.4); BILIRUBIN,TOTAL 0.3 mg/dL (0.2-1.3); BLOOD UREA NITROGEN 15 mg/dL (7-20); CALCIUM 8.7 mg/dL (8.4-10.2); CARBON DIOXIDE 26 mmol/L (22-30); CHLORIDE 107 mmol/L (98-107); GLUCOSE 92 mg/dL (75-110); POTASSIUM 4.1 mmol/L (3.6-5.0); TOTAL PROTEIN 6.8 g/dL (6.3-8.2)
[2020-09-09 11:49] LABS: ACETAMINOPHEN < 10 ug/mL (10-30); ALCOHOL < 10 mg/dL (NONE DETECTED); SALICYLATE < 1.0 mg/dL (2.0-20.0)
--- NOTE | 2020-09-09 12:09 | RADIOLOGY REPORT (SQ) ---
EXAM DESCRIPTION: HAND BILATERAL 2 VIEWS IMAGES COMPLETED DATE/TIME: 09/09/2020 10:24 am REASON FOR STUDY: hand injuries COMPARISON: None. EXAM PARAMETERS: NUMBER OF VIEWS: Six views. TECHNIQUE: AP, lateral and oblique radiographic images acquired of the right and left hand. LIMITATIONS: None. FINDINGS: MINERALIZATION: Normal. BONES: No acute fracture or dislocation. No worrisome bone lesions. JOINTS: No effusions. SOFT TISSUES: No soft tissue swelling. No foreign body. OTHER: No other significant finding. IMPRESSION: No radiographic abnormality of the right or left hand. TECHNICAL DOCUMENTATION: JOB ID: [id number] 2010 [employer]- All Rights Reserved Reading location - IP/workstation name: [email or web address]
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
[2020-09-09 12:25] LABS: URINE AMPHETAMINES SCREEN NEGATIVE; URINE BARBITURATES SCREEN NEGATIVE; URINE BENZODIAZEPINES SCREEN NEGATIVE; URINE COCAINE SCREEN NEGATIVE; URINE METHADONE SCREEN NEGATIVE; URINE PHENCYCLIDINE SCREEN NEGATIVE
[2020-09-09] MEDS ORDERED: OLANZAPINE 5 MG TABLET PO ONE (12:26)
[2020-09-09 12:33] LABS: URINE MARIJUANA (THC) SCREEN UNCONFIRMED POSITIVE
[2020-09-09 13:01] VITALS: BP 110/59
== END 2020-09-09 13:02 | disposition home or self-care (01) ==
LOC: ER 09:09
DX: S60.519A Abrasion of unspecified hand, initial encounter (principal); M72.2 Plantar fascial fibromatosis; W22.09XA Striking against other stationary object, initial encounter; Y92.008 Other place in unspecified non-institutional (private) residence as the place of occurrence of the external cause; F31.9 Bipolar disorder, unspecified; F90.9 Attention-deficit hyperactivity disorder, unspecified type; F95.2 Tourette's disorder; F17.200 Nicotine dependence, unspecified, uncomplicated
CPT/HCPCS: 99285; 36415; 80307 ×4; 85025; 80053; 73120; J3490